=== PATIENT | male | born 1970 | race Two or more races ===

== ENCOUNTER 2017-11-22 10:15 | Inpatient (IN) | payer BC ==
[~2017-11-22] VITALS: Ht 165.1 cm; Wt 95.2 kg
[2017-11-22 10:21] VITALS: Ht 165.1 cm; Wt 95.2 kg
[2017-11-22 11:03] LABS: CALCIUM 9.1 mg/dL (8.5-10.1); CARBON DIOXIDE 26.8 mmol/L (21-32); CHLORIDE SERUM 105 mmol/L (98-107); GFR1 > 60 mL/min; GLUCOSE SERUM 121 mg/dL (74-106); SODIUM SERUM 140 mmol/L (136-145)
[2017-11-22 11:07] LABS: ALBUMIN 4.1 g/dL (3.4-5.0); ALKALINE PHOSPHATASE 105 U/L (46-116); ALT/SGPT 44 U/L (16-63); AMYLASE 76 U/L (25-115); AST/SGOT 32 U/L (15-37); BILIRUBIN TOTAL 0.79 mg/dL (0.20-1.00); LIPASE 259 IU/L (73-393)
[2017-11-22 11:09] LABS: BASOPHIL % 0.2 % (0-2)
[2017-11-22 11:11] LABS: TOTAL PROTEIN, SERUM 8.5 g/dL (6.4-8.2)
[2017-11-22 11:12] LABS: PLATELET COUNT 260 x10^3mcL (130-400); RED CELL DISTRIBUTION WIDTH 13.7 % (11.5-14.5)
[2017-11-22 13:16] LABS: UA SPECIFIC GRAVITY >=1.030 (1.005-1.035); microscopic required? YES; urine erythrocyte 3+ (NEGATIVE)
[2017-11-22 15:38] VITALS: BP 129/93
[2017-11-22 16:25] LABS: MAGNESIUM 2.4 mg/dL (1.8-2.4); PHOSPHOROUS 3.5 mg/dL (2.5-4.9)
[2017-11-22 16:38] LABS: FREE T4 1.21 ng/dL (0.76-1.46)
[2017-11-22 16:50] LABS: T3 TOTAL 0.91 ng/mL
[2017-11-22 20:31] LABS: AMPHETAMINE QUAL UR NONE DETECTED (NEG <=1000)
[2017-11-22 21:33] VITALS: BP 128/78
[2017-11-23 05:57] LABS: BASOPHIL % 0.2 % (0-2); PLATELET COUNT 227 x10^3mcL (130-400); RED CELL DISTRIBUTION WIDTH 13.5 % (11.5-14.5)
[2017-11-23 06:03] VITALS: BP 149/86
[2017-11-23 06:11] LABS: CALCIUM 8.6 mg/dL (8.5-10.1); CARBON DIOXIDE 25.2 mmol/L (21-32); CHLORIDE SERUM 109 mmol/L (98-107); CREATININE SERUM 0.8 mg/dL (0.7-1.3); GFR1 > 60 mL/min; GLUCOSE SERUM 118 mg/dL (74-106); POTASSIUM SERUM 3.8 mmol/L (3.5-5.1); SODIUM SERUM 141 mmol/L (136-145)
[2017-11-23 08:42] VITALS: BP 126/72
[2017-11-23] MEDS ORDERED: NORCO1 TA2 PO (09:46)
[2017-11-23] MEDS ORDERED: FLO4 PO (09:46)
[2017-11-23] MEDS ORDERED: COL100 PO (09:47)
[2017-11-23 10:56] VITALS: BP 126/72
== END 2017-11-23 11:40 | disposition home or self-care (01) | DRG 694 ==
LOC: ED 10:15 → DU 14:43
PROVIDERS: Emergency Medicine; Family Medicine
DX: N13.2 Hydronephrosis with renal and ureteral calculous obstruction (principal); I10 Essential (primary) hypertension; Z53.29 Procedure and treatment not carried out because of patient's decision for other reasons; N17.0 Acute kidney failure with tubular necrosis; R31.9 Hematuria, unspecified; Z72.89 Other problems related to lifestyle
CPT/HCPCS: 83880; 84439; J1885; J2405; J7030; Q0092

== ENCOUNTER 2019-01-09 18:54 | Emergency (ER) | payer BC ==
[~2019-01-09] VITALS: Ht 165.1 cm; Wt 95.3 kg
[~2019-01-09 18:54] MED LIST: COL100 PO; FLO4 PO; NORCO1 TA2 PO
[2019-01-09 18:57] VITALS: Ht 165.1 cm; Wt 95.3 kg
[2019-01-09 20:47] VITALS: BP 156/89
== END 2019-01-09 20:47 | disposition home or self-care (01) ==
LOC: ED 18:54
DX: G51.0 Bell's palsy (principal); I10 Essential (primary) hypertension